=== PATIENT | male | born 1995 | race Caucasian/White ===

== ENCOUNTER → 2019-06-16 | Outpatient (CLI) | payer OTHER ==
--- NOTE | 2019-06-16 15:02 | RAD ---
EXAM DESCRIPTION: Cervical Spine,5 Views CLINICAL HISTORY: 23 years Male, CERVICAL SPRAIN COMPARISON: None. FINDINGS: Five views cervical spine series demonstrates slight loss of normal lordosis with straightening of the cervical spine. No prevertebral soft tissue swelling is noted. Vertebral and disc height is maintained. No cervical ribs noted. Neural foramina and lateral masses appear normal on oblique views. Normal mineralization with no significant degenerative disc disease or acute injury noted. IMPRESSION: Straightening of the cervical spine with loss of lordosis otherwise negative cervical spine study five views. Electronically signed by: Valdemar Malik MD 06/16/2019 3:00 PM CDT
--- NOTE | 2019-06-16 15:02 | RAD ---
EXAM DESCRIPTION: Cervical Spine,Flex/Ext CLINICAL HISTORY: 23 years Male, CERVICAL SPRAIN COMPARISON: June 16, 2019 FINDINGS: Flexion and extension views of the cervical spine demonstrate normal flexion and normal extension without abnormal subluxation. Posterior elements appear intact. No malalignment seen. IMPRESSION: Flexion and extension views of the cervical spine. Electronically signed by: Valdemar Malik MD 06/16/2019 3:01 PM CDT
== END ==
LOC: RAD 12:22
PROVIDERS: ATTEND Chiropractor
DX: S13.4XXA Sprain of ligaments of cervical spine, initial encounter (principal); M43.8X2 Other specified deforming dorsopathies, cervical region